=== PATIENT | female | born 1950 | race Caucasian/White ===

== ENCOUNTER 2021-10-06 07:15 | Emergency (ER) | payer MEDICARE, OTHER ==
[2021-10-06 08:45] LABS: BASOPHIL 0.2 % (0-2); EOSINOPHIL 0.3 % (0-7); HCT 32.8 % (37.0-47.0); HGB 10.6 g/dl (12.5-16.0); LYMPHOCYTE 9.8 % (15-48); MCH 29.9 pg (25.0-31.0); MCHC 32.3 g/dL (32.0-36.0); MCV 92.4 fL (78.0-100.0); MONOCYTE 10.4 % (0-12); MPV 10.2 fL (6.0-9.5); NRBC 0; PLT 154 K/uL (150-400); RBC 3.55 M/uL (4.20-5.40); RDW 13.7 % (11.5-14.0); WBC 11.6 K/uL (4.0-10.5)
[2021-10-06 09:17] LABS: CREATININE 0.84 mg/dL (0.51-0.95); POTASSIUM 3.7 mmol/L (3.5-5.1)
[2021-10-06] MEDS ORDERED: NORCO 5-325 TA1 EACH PO (11:32)
[2021-10-06] MEDS ORDERED: CLEOCIN300 MG PO (11:32)
[2021-10-07] MEDS ORDERED: OMEPRAZOLE40 MG PO (15:21)
[2021-10-07] MEDS ORDERED: LISINOPRIL40 MG PO (15:21)
[2021-10-07] MEDS ORDERED: HCTZ25 MG PO (15:21)
[2021-10-07] MEDS ORDERED: SYNTHROID100 MCG PO (15:22)
[2021-10-07] MEDS ORDERED: ELIQUIS5 MG PO (15:22)
[2021-10-07] MEDS ORDERED: SINGULAIR10 MG PO (15:22)
[2021-10-07] MEDS ORDERED: LOVAZA1 GM PO (15:22)
[2021-10-07] MEDS ORDERED: ZYRTEC10 MG PO (15:23)
[2021-10-07] MEDS ORDERED: LEXAPRO 10MG TA10 MG PO (15:23)
[2021-10-07] MEDS ORDERED: CRESTOR5 MG PO (15:23)
[2021-10-07] MEDS ORDERED: VITAMIN D350 MC5 PO (15:23)
[2021-10-07] MEDS ORDERED: TAMOXIFEN CITRA10 MG PO (15:24)
[2021-10-08] MEDS ORDERED: NORCO 5-325 TA1 EACH PO (11:39)
== END 2021-10-06 11:47 | disposition home or self-care (01) ==
LOC: FER 07:15
PROVIDERS: Emergency Medicine
DX: N61.0 Mastitis without abscess (principal); N64.89 Other specified disorders of breast; I10 Essential (primary) hypertension; I48.91 Unspecified atrial fibrillation; Z88.8 Allergy status to other drugs, medicaments and biological substances; Z79.01 Long term (current) use of anticoagulants; Z79.899 Other long term (current) drug therapy
CPT/HCPCS: 36415; 76642-LT; 80048; 85025; J1170

== ENCOUNTER → 2021-10-08 | Day surgery (SDC) | payer MEDICARE, OTHER ==
[~2021-10-08] VITALS: Ht 167.6 cm; Wt 117.9 kg
[~2021-10-08] MED LIST: CLEOCIN300 MG PO; CRESTOR5 MG PO; ELIQUIS5 MG PO; HCTZ25 MG PO; LEXAPRO 10MG TA10 MG PO; LISINOPRIL40 MG PO; LOVAZA1 GM PO; NORCO 5-325 TA1 EACH PO; OMEPRAZOLE40 MG PO; SINGULAIR10 MG PO; SYNTHROID100 MCG PO; TAMOXIFEN CITRA10 MG PO; VITAMIN D350 MC5 PO; ZYRTEC10 MG PO
== END | disposition home or self-care (01) ==
LOC: FAS 09:30
DX: N61.1 Abscess of the breast and nipple (principal); N64.89 Other specified disorders of breast; I10 Essential (primary) hypertension; E03.9 Hypothyroidism, unspecified; I48.91 Unspecified atrial fibrillation; Z79.01 Long term (current) use of anticoagulants; Z90.12 Acquired absence of left breast and nipple; Z85.3 Personal history of malignant neoplasm of breast; Z88.8 Allergy status to other drugs, medicaments and biological substances
CPT/HCPCS: 87070; 87075; 87205; 93005; J1170; J2270; J2405; J2704; J3010; J7120